=== PATIENT | male | born 1975 | race Caucasian/White ===

== ENCOUNTER → 2016-04-15 09:20 | Day surgery (SDC) | payer OTHER ==
--- NOTE | 2016-04-09 16:51 | HP ---
PREOPERATIVE HISTORY AND PHYSICAL: DATE OF SURGERY/ADMISSION: 04/15/16 [facility] DATE OF OFFICE VISIT/ENCOUNTER: 04/07/16 ATTENDING SURGEON: Dr. Paty Rudolph. PROCEDURE: Right wrist carpal tunnel release, ulnar nerve decompression at the elbow. CHIEF COMPLAINT: Numbness and tingling in the right hand. HISTORY OF PRESENT ILLNESS: This is a 41-year-old male who is complaining of numbness and tingling and pain in the right hand that had been ongoing for several years now. He had a nerve conduction study a few years ago that was consistent with ulnar neuropathy at the elbow and carpal tunnel syndrome at the wrist. Symptoms have become much more bothersome over the years to the point where he cannot ride his motor cycle. He feels weakness in his hands as well as pain and often times he is dropping things. He wakes up at night very frequently and has to shake his hands to try to get some of the feeling back. He complains of symptoms in his thumb, index, and middle fingers and occasionally his small finger has a lot of burning pain along with the ulnar aspect of his hand. He is interested in pursuing surgical intervention at this time to alleviate his symptoms. PAST MEDICAL HISTORY: 1. Anxiety. PAST SURGICAL HISTORY: 1. Right shoulder decompression. 2. Surgery for right hand wound infection. CURRENT MEDICATIONS: None. ALLERGIES: No known drug allergies. FAMILY MEDICAL HISTORY: Noncontributory. SOCIAL HISTORY: The patient is not currently employed. He is a smoker and smokes up to a pack per day. He has done so since age 13. He also admits to smoking marijuana on regular occasion. He admits to social alcohol drinking. REVIEW OF SYSTEMS: General: Positive for fatigue, negative for fevers, chills or night sweats. No known anesthesia problems in the past. HEENT: The patient reports history of syncopal episodes, approximately 2 years ago, etiology unclear. Negative for headache or lightheadedness. Integumentary: Negative for abrasions, lesions, or open wounds. Cardiothoracic: Negative for chest pain, palpitations or edema. Negative for hypertension. Pulmonary: Negative for shortness of breath with exertion, chronic cough, or COPD. GI: Negative for nausea, vomiting, diarrhea, constipation or GERD. : Negative for nocturia, urinary frequency, urgency, history of UTIs or kidney problems. Musculoskeletal: Positive for chronic back pain and current complaint. Neurological, negative for history of seizure, stroke, or epilepsy. Positive for peripheral neuropathy and anxiety. Endocrine: Negative for Diabetes or thyroid issues. Hematologic: Negative for easy bruising, anemia, excessive bleeding, or history of DVT. Infectious Disease: Negative for history of MRSA, hepatitis C, or HIV. PHYSICAL EXAMINATION VITAL SIGNS: Height 6 feet 1.5 inches, weight 292 pounds, pulse rate 100, blood pressure 158/89. GENERAL: Well-developed, well-nourished 41-year-old male, in no acute distress. HEENT: Normocephalic, atraumatic. Pupils are equal, round, and reactive to light and accommodation. Extraocular movements are intact. NECK: Supple. No palpable lymph nodes. Throat is clear. PULMONARY: Lungs are clear to auscultation bilaterally. No wheezes, rales, or rhonchi. CARDIOTHORACIC: Regular rate and rhythm. S1, S2. No murmurs, rubs or gallops. No edema. ABDOMEN: Positive bowel sounds, soft, and nontender. NEUROLOGICAL: Alert and oriented x3. Cranial nerves II through XII are intact. Sensation is intact to light touch. MUSCULOSKELETAL: On exam of the right upper extremity, he has a positive Tinel' s sign at the ulnar nerve, at the elbow and a positive Tinel's sign of the median nerve at the wrist. He has decreased sensation to light touch at the median nerve distribution, weakness with some abduction. He has full flexion and extension of his fingers and there is no significant thenar wasting but there is weakness with thumb abduction. EMG nerve conduction study of the right upper extremity shows evidence of right carpal tunnel syndrome and ulnar neuropathy at the elbow. IMPRESSION: Right carpal tunnel syndrome and ulnar neuropathy at the elbow. PLAN: The patient is scheduled to undergo a right wrist carpal tunnel release and an ulnar nerve decompression at the elbow with Dr. Rudolph on 04/15/16. He will return to the office 10 to 14 days postop for followup and suture removal. Pain medication will be e-scribed for the patient on the day of surgery. ROD ELENA [id number]/[facility] #: [id number] MTDD
[~2016-04-15 09:20] MED LIST: Buffered Lidocaine 1% SYR 3ML* 3 ML/SYR SYRINGE INTRADERM ONE; Buffered Lidocaine 1% SYR 3ML* 3 ML/SYR SYRINGE ONE; Bupivacaine 0.5% SDV PF* 30 ML VIAL ONE; HYDROcodone/ACETAMIN 5-325 MG* 1 TAB ONE; Ketorolac INJ* 30 MG/ML 1 ML VIAL ONE; Lidocaine 1% INJ* 10 MG/ML 30 ML SDV ONE; Lidocaine 2% PF * 5 ML VIAL ONE; Midazolam* 1 MG/ML 2 ML VIAL (2 MG) ONE; Propofol* 10 MG/ML 20 ML BTL IV PUSH ONE; Sodium Citrate/Citric Acid* 15 ML UDC ONE; Sodium Citrate/Citric Acid* 15 ML UDC PO ONE; ceFAZolin 2 GM PREMIX (*) 2 GM/50 ML BAG IVPB ONE; fentaNYL* 50 MCG/ML 2 ML VIAL (100 MCG VIAL) ONE
[2016-04-15 13:17] VITALS: BP 145/77
--- NOTE | 2016-04-15 23:53 | OP ---
DATE OF OPERATION: 04/15/16 - [facility] DATE OF : 77 SURGEON: Paty Rudolph MD GUEST SERVICE AIDE: ROD Simon ANESTHESIOLOGIST: Demian Maurer DO ANESTHESIA: General. PRE-OP DIAGNOSES: Right carpal tunnel syndrome and right ulnar nerve compression of the elbow. POST-OP DIAGNOSES: Right carpal tunnel syndrome and right ulnar nerve compression of the elbow. OPERATIVE PROCEDURE: Right carpal tunnel release and ulnar nerve decompression of the elbow. ESTIMATED BLOOD LOSS: Zero. TOURNIQUET TIME: About 30 minutes. INDICATION FOR PROCEDURE: Nav is a 41-year-old male who has numbness and tingling in his right hand. Nerve conduction is consistent with ulnar nerve compression of the elbow and median nerve compression of the wrist. DESCRIPTION OF PROCEDURE: The patient was brought to the operating room and was given a general anesthetic and placed in the supine position on the operating table with a tourniquet around his right upper arm and right upper extremity was prepped and draped in the usual sterile fashion. The upper extremity was exsanguinated and the tourniquet elevated to 250 mmHg. A longitudinal incision was made in the palm in line with the ring finger. We dissected through the subcutaneous tissue sharply down to the transverse carpal ligament. The ligament was incised longitudinally and then released more proximally with the scissors. The median nerve was dissected free from the surrounding tissue, and there was an area of moderate compression at the mid portion of the ligament. The wound was irrigated and the skin edge was reapproximated with 4-0 nylon suture. Next, a curvilinear incision was made centered between the medial epicondyle and the tip of the olecranon process. We dissected sharply through the subcutaneous tissue and then bluntly down to the median nerve just proximal to the elbow joint. The patient had an anconeus epitrochlearis muscle across his cubital tunnel. Presumably, this was the main side of compression. This was divided as was Alonzo ligament and then the nerve was dissected out proximally and distally from all of its constraints. The FCU fascia was divided superficially and this completely released the nerve. The medial intermuscular septum was incised as well. The wound was irrigated with saline. Subcutaneous tissue closed with 2-0 Polysorb and the skin with skin blanca. The wound was dressed with Xeroform, 4x4, Webril and an Donavon wrap. The patient tolerated the procedure and was brought to the recovery room in good condition. [id number]/[facility] #: [id number] JENNIFER
== END | disposition home or self-care (01) ==
LOC: OREAST 09:20
PROVIDERS: ATTEND Orthopaedic Surgery
DX: G56.01 Carpal tunnel syndrome, right upper limb (principal); G56.21 Lesion of ulnar nerve, right upper limb; F17.200 Nicotine dependence, unspecified, uncomplicated; I10 Essential (primary) hypertension; G47.33 Obstructive sleep apnea (adult) (pediatric); Z68.38 Body mass index [BMI] 38.0-38.9, adult
CPT/HCPCS: A9270-GY; J0690; J1885; J2250; J2704; J3010

== ENCOUNTER 2016-05-14 11:35 | Emergency (ER) | payer OTHER ==
[2016-05-14 11:39] VITALS: BP 145/89
== END 2016-05-14 14:47 | disposition left against medical advice (07) ==
LOC: ED 11:35
DX: Z91.81 History of falling (principal); Z53.21 Procedure and treatment not carried out due to patient leaving prior to being seen by health care provider

== ENCOUNTER 2016-10-16 06:09 | Observation (INO) | payer OTHER ==
[~2016-10-16 06:09] MED LIST changes: +Buffered Lidocaine 0.9% SYRIN* 5 ML/SYR SYRINGE INTRADERM ONE; -Buffered Lidocaine 1% SYR 3ML* 3 ML/SYR SYRINGE INTRADERM ONE; -Buffered Lidocaine 1% SYR 3ML* 3 ML/SYR SYRINGE ONE; -Bupivacaine 0.5% SDV PF* 30 ML VIAL ONE; +Famotidine IV* 10 MG/ML 2 ML (20 mg) IV ONE; -HYDROcodone/ACETAMIN 5-325 MG* 1 TAB ONE; -Ketorolac INJ* 30 MG/ML 1 ML VIAL ONE; -Lidocaine 1% INJ* 10 MG/ML 30 ML SDV ONE; -Lidocaine 2% PF * 5 ML VIAL ONE; +Metoclopramide TAB* 10 MG PO ONE; -Midazolam* 1 MG/ML 2 ML VIAL (2 MG) ONE; -Propofol* 10 MG/ML 20 ML BTL IV PUSH ONE; -Sodium Citrate/Citric Acid* 15 ML UDC ONE; -Sodium Citrate/Citric Acid* 15 ML UDC PO ONE; -ceFAZolin 2 GM PREMIX (*) 2 GM/50 ML BAG IVPB ONE; -fentaNYL* 50 MCG/ML 2 ML VIAL (100 MCG VIAL) ONE
[2016-10-16] MEDS ORDERED: Buffered Lidocaine 0.9% SYRIN* 5 ML/SYR SYRINGE ONE (06:32)
[2016-10-16] MEDS ORDERED: Famotidine IV* 10 MG/ML 2 ML (20 mg) ONE (06:32)
[2016-10-16] MEDS ORDERED: Metoclopramide TAB* 10 MG ONE (06:32)
[2016-10-16] MEDS ORDERED: ceFAZolin 2 GM PREMIX (*) 50 ML BAG (BBraun bag) IVPB ONE (06:33)
[2016-10-16] MEDS ORDERED: Artificial Tear OPHTH.OINT* 3.5 GM ONE (07:11)
[2016-10-16] MEDS ORDERED: Lidocaine 1.5% EPI 1:200,000* 30 ML SDV ONE (07:18)
[2016-10-16] MEDS ORDERED: Thrombin 5,000 UNITS* 1 APPLIC KIT - topical use - TOPICAL ONE (07:18)
[2016-10-16] MEDS ORDERED: Bacitracin IV* 50,000 UNITS INJ ONE (07:18)
[2016-10-16] MEDS ORDERED: fentaNYL* 50 MCG/ML 5 ML VIAL (250 MCG VIAL) ONE (07:19)
[2016-10-16] MEDS ORDERED: Lidocaine 2% PF * 5 ML VIAL ONE (07:19)
[2016-10-16] MEDS ORDERED: Cisatracurium* 2 MG/ML MDV 5 ML ONE (07:19)
[2016-10-16] MEDS ORDERED: Ondansetron INJ* 2 MG/ML VIAL ONE (07:19)
[2016-10-16] MEDS ORDERED: Propofol* 10 MG/ML 20 ML BTL IV PUSH ONE ×2 (07:19→08:04)
[2016-10-16] MEDS ORDERED: Dexamethasone IV* 4 MG/ML 1 ML (4 MG) ONE (07:19)
[2016-10-16] MEDS ORDERED: KETAMINE HCL* 50 MG/ML 10 ML VIAL ONE (07:20)
[2016-10-16] MEDS ORDERED: Midazolam* 1 MG/ML 5 ML VIAL (5 MG) ONE (07:20)
[2016-10-16] MEDS ORDERED: Ondansetron INJ* 2 MG/ML VIAL IV PRN ×2 (09:29→09:46)
[2016-10-16] MEDS ORDERED: HYDROmorphone* 1 MG/ML 1 ML SYR ONE ×4 (09:43→11:36)
[2016-10-16] MEDS ORDERED: Acetaminophen TAB* 325 MG PO PRN (09:46)
[2016-10-16] MEDS ORDERED: Nicotine Inhaler* 10 MG AMP INH PRN (09:49)
[2016-10-16] MEDS ORDERED: Mouth Piece, Nicotine* 1 EACH CARTRIDGE INH PRN (09:49)
[2016-10-16] MEDS ORDERED: Benzocaine/Menthol LOZ* 1 LOZENGE PO PRN (09:50)
[2016-10-16] MEDS ORDERED: Nicotine PATCH 21 MG/24 HR* PATCH TRANSDERM SCH (10:00)
[2016-10-16] MEDS ORDERED: fentaNYL* 50 MCG/ML 2 ML VIAL (100 MCG VIAL) ONE ×3 (10:03→10:46)
[2016-10-16] MEDS: fentaNYL* 50 MCG/ML 2 ML VIAL (100 MCG VIAL) IV PRN ×5 (10:04→10:47)
[2016-10-16] MEDS: HYDROmorphone* 1 MG/ML 1 ML SYR IV PRN ×2 (10:06→10:20)
--- NOTE | 2016-10-16 10:16 | RAD ---
HISTORY: Anterior cervical fusion COMPARISONS: CT dated May 29, 2016 VIEWS: 3, portable intraoperative views of the cervical spine for localization during spinal surgery FINDINGS: The first image performed at 7:05 AM demonstrates a needle opposite of C6. The second image performed at 8:30 AM demonstrates a needle within the C5-C6 intervertebral disc space. The subsequent image at 8:40 AM demonstrates an anterior cervical fusion plate and screws at C5 and C6 with intervertebral graft material at C5-C6. IMPRESSION: LIMITED PORTABLE VIEWS OF THE CERVICAL SPINE FOR LOCALIZATION DURING SPINAL SURGERY
[2016-10-16] MEDS ORDERED: oxyCODONE/Acetamin 5/325 MG* TAB ONE ×2 (10:33→10:46)
[2016-10-16] MEDS: oxyCODONE/Acetamin 5/325 MG* TAB PO PRN ×2 (10:34→10:47)
[2016-10-16] MEDS: Morphine INJ* 4 MG/ML 1 ML SYRINGE IV PRN ×2 (13:15→17:16)
[2016-10-16] MEDS: HYDROcodone/ACETAMIN 5-325 MG* 1 TAB PO PRN ×2 (15:31→20:11)
[2016-10-16] MEDS ORDERED: Nicotine Patch Removal NOTE PATCH OFF SCH (21:00)
[2016-10-17] MEDS: HYDROcodone/ACETAMIN 5-325 MG* 1 TAB PO PRN ×2 (00:13→04:42)
--- NOTE | 2016-10-17 07:41 | PN ---
Progress Note - Progress Note Date of Service: 10/17/16 SOAP: Subjective: []POD#1 Doing well C/O incisional pain Drain fell out Objective: []Neuro intact Neck soft Assessment: []Satis post op course Plan: []D/C today D/C instructions given
[2016-10-17] MEDS ORDERED: HYDROcodone/ACETAMIN 5-325 MG* 1 TAB PO PRN (08:25)
[2016-10-17] MEDS ORDERED: HYDROcodone/ACETAMIN 5-325 MG* 1 TAB ONE (08:29)
[2016-10-17 09:37] VITALS: BP 120/92
--- NOTE | 2016-10-18 02:43 | DS ---
DISCHARGE SUMMARY: DATE OF ADMISSION: 10/16/16 DATE OF DISCHARGE: 10/17/16 ATTENDING PHYSICIAN: Dr. Donovan * (DICTATED BY ROD CHRISTENSEN) DISCHARGE DIAGNOSIS: Cervical disk disease C5-6. SPECIAL PROCEDURE: Anterior cervical diskectomy and fusion C5-6 with anterior instrumentation. HOSPITAL COURSE: This 41-year-old male was seen in the office with cervical radiculopathy, consistent with a herniated disk at C5-6 to the right as evidenced from cervical spine MRI. He failed to improve with conservative treatments and admitted at this time for elective surgical treatment. On the day of admission, he was taken to surgery where under general anesthesia, an anterior cervical diskectomy and fusion at C5-6 operation was carried out. Postoperatively, he is feeling well; however, pain was difficult to control with oral pain medications and he therefore, required IV pain medications for optimal management. Overnight, the MONTY wound drain fell out on its own and therefore, remained out. He was eating soft food without difficulty. He is ambulating independently. On the first postoperative day, he was discharged home to the care of his family. DISCHARGE INSTRUCTIONS: Activity level and wound care were discussed with the patient and information was provided. Followup: He will be seen in approximately 2 weeks in office for followup. DISCHARGE MEDICATIONS: [place] 5/325 mg 2 tabs by mouth every 4 hours as needed for pain. ROD CHRISTENSEN [id number]/[facility] #: [id number] [facility]
--- NOTE | 2016-10-19 02:29 | OP ---
OPERATIVE REPORT: DATE OF OPERATION: 10/16/16 DATE OF : 77 PRIMARY SURGEON: Valente Donovan MD. PATIENT INTAKE REPRESENTATIVE: ROD Self ANESTHESIA: General. PREOP DIAGNOSIS: Herniated nucleus pulposus, C5-6. POST-OP DIAGNOSIS: Herniated nucleus pulposus, C5-6. OPERATIVE PROCEDURE: Anterior cervical diskectomy and fusion C5-6 with placement of biomechanical f usion device and anterior instrumentation. DESCRIPTION OF PROCEDURE: After satisfactory general anesthesia was obtained, the patient was place d on the operating table in the supine position with the head supported on the horseshoe headrest an d the neck slightly extended. A emblem maker x-ray was taken and a skin incision was outlined at the midli ne extending to the right side. This was 3 cm localized though at the C5-6 level. This incision wa s infiltrated with 1% Xylocaine with epinephrine after which it was turned down sharply to the level of the subcutaneous tissues. A superiorly and inferiorly based subcutaneous flap was then fashione d and the platysma muscle divided along the direction of its fibers. Utilizing a combination of sha rp and blunt dissection, the dissection plane was developed between the sternocleidomastoid and stra p muscles and carried down to the anterior aspect of the span. An additional x- ray was taken verif enrico localization of the C5-6 level, after which the attachment of longus colli muscle was down and self-retaining retractors placed to facilitate exposure. The anterior two-thirds and disk material was removed with the combination of Midas Mikey drill, angled curettes, and pituitary rongeurs. Caspa r distractor pins were then placed in the C5 and C6 vertebral bodies and gentle disk space distracti on applied. At this point of the procedure, the operating microscope was brought into the field, an d the remainder of the procedure was done under microscopic visualization. Utilizing the drill, cur ettes, and Kerrison's, the remainder of the disk was removed and there was noted to be disk material extending out into the right neuroforamen. This was removed in several fragments. The decompressio n was carried back until normal dura was encountered. At the conclusion of the decompression, the n erve hook readily with both C6 nerve roots. Following the decompression, an 8 mm PEEK graft was selected and filled with bony matrix after which it was slightly countersunk. A Medtronic ZEVO plate was then selected and secured into position with 13-mm self-drilling screws into the C5 and C6 vertebral bodies. A post-construct x-ray was done showing good graft and placement. The wound was then thoroughly irrigated, after which a drain was placed in the prevertebral space and tunneled ou t toward the right side. The subcutaneous tissues were then reapproximated with 3-0 Vicryl and the skin closed with Steri-Strips. The estimated blood loss was less than 50 cc and the final sponge, p adding, and needle counts were correct. The patient was taken to the recovery room, extubated, and in stable condition. [id number]/[facility] #: [id number]
== END 2016-10-17 09:37 | disposition home or self-care (01) ==
LOC: OR 06:09 → SSU 12:17
PROVIDERS: ADMIT Neurological Surgery; ATTEND Neurological Surgery
DX: M50.122 Cervical disc disorder at C5-C6 level with radiculopathy (principal); F17.210 Nicotine dependence, cigarettes, uncomplicated
CPT/HCPCS: 72020; 96374; 96375; A9270-GY; C1713; C1776; C9359; G0378; J0690; J1100; J1170; J2250; J2270; J2405; J2704; J3010

== ENCOUNTER 2018-03-11 17:14 | Emergency (ER) | payer OTHER ==
--- OUTSIDE RECORDS SUMMARY | 2018-03-11 17:35 | XMS REPORT | Continuity of Care Document ---
:1975 External Reference #:[id number] Author Name Wayne Carcamo MD Address [address] [place] [address] Care Team Providers Name Role Phone Patito Russell, Branden Care Team Information Mig Tig Welder Unavailable Patito Russell, Branden Primary Care Physician Unavailable Payers Type Date Identification Numbers Payment Provider Subscriber Policy Number: [id number] [facility] Nav Sarabia PayID: [id number] [address] [address] [place] [address] Advance Directives Description No Information Available Problems Date Description Provider Status Onset: 12/08/2012 Essential hypertension Olena Delgado NP Active Onset: 01/21/2018 Otorrhea Wayne Carcamo MD Active Onset: 01/21/2018 Diffuse otitis externa Wayne Carcamo MD Active Family History Date Family Member(s) Problem(s) Comments General Hearing Loss General Migraine Social History Type Date Description Comments Sex Unknown Occupation Unemployed Tobacco Use Start: Unknown Current Cigarette Smoker 1/2 Pack x 20 yrs Daily Tobacco Use Start: Unknown Never Smoked Cigars Tobacco Use Start: Unknown Never Smoked A Pipe Smokeless Tobacco Never Used Smokeless Tobacco ETOH Use PT Does Not Currently Drink Alcohol Recreational Drug Use Current Marijuana smoker Tobacco Use Start: Unknown Patient is a current smoker, smokes every day Allergies, Adverse Reactions, Alerts Description No Known Drug Allergies Medications Medication Date Status Form Strength Qnty SIG Indications Ordering Provider No Active 02/19/ Active Unknown Medications 2018 Ciprodex 12/08/ Hx Suspension 0.3-0.1% 2units 4 drops 380.10 [place] 2013 - infected Annette 01/20/ satnam cruz M.D. 2018 apply rebate rxbin: [id number] rxpcn: loyalty rxgrp: [id number] tie worker: ([id number]) id: [id number] Zolpidem /00/ Hx Unknown Tartrate 2012 Pravastatin /00/ Hx Unknown 2012 Oxycodone /00/ Hx Unknown 2012 Naproxen /00/ Hx Unknown 2012 Nicotine /00/ Hx Unknown Relief 2012 Nicrorelief // Hx Unknown 2012 Percocet / Hx Tablets 10-325mg Unknown - 2017 Ambien / Hx Tablets 10mg 1 po q hs Unknown - 2017 Pravachol / Hx Tablets 20mg Unknown 2017 Zanaflex / Hx Capsules 4mg 1/2 tab po Unknown 0000 - q 4-6 prn 2017 Oxycodone HCL / Hx Tablets 10mg Take One Unknown 0000 - Tablet By Four 2018 Times A Day as Needed Maximum Daily Dose 4 Immunizations Description No Information Available Vital Signs Date Vital Result Comment 02/19/2018 10:22am Weight 306.00 lb Weight 138.802 kg Height 73 inches 6'1" Height in cm's 185.4 cm BMI (Body Mass Index) 40.4 kg/m2 01/21/2018 11:17am Weight 306.00 lb Weight 138.802 kg Height 73 inches 6'1" Height in cm's 185.4 cm BMI (Body Mass Index) 40.4 kg/m2 12/08/2012 3:33pm BP Systolic 136 mmHg BP Diastolic 82 mmHg Heart Rate 64 /min Respiratory Rate 16 /min Weight 280.00 lb Weight 127.000 kg Height 72 inches 6'0" Height in cm's 182.9 cm BMI (Body Mass Index) 38.0 kg/m2 Results Description No Information Available Procedures Date Code Description Status 12/08/2012 05374 Binocular Microscopy Completed Encounters Type Date Location Provider Dx Diagnosis Office Visit 02/19/2018 [place],Pradeep Carcamo, H60.311 Diffuse otitis 10:15a 03/09/07 MD externa, right ear Office Visit 01/21/2018 [place],After Wayne Carcamo H60.311 Diffuse otitis 11:15a 03/09/07 MD externa, right ear H92.11 Otorrhea, right ear Office Visit 12/08/2012 3:30p [place],After 03/09/07 Danny, 380.10 Otitis Externa [place] [employer] Acute 401.9 High Blood Pressure Or Hypertension/Unspecified Plan of Treatment 02/19/2018 - Wayne Carcamo MDH60.311 Diffuse otitis externa, right earComments :Otitis externa significant improvement, hydrocortisone ointment to the external ear for itchiness
[2018-03-11] MEDS ORDERED: predniSONE TAB* 20 MG PO ONE (21:07)
--- NOTE | 2018-03-11 21:07 | ED ---
Shortness of Breath - HPI Summary HPI Summary: This patient is a 43 year old M presenting to [facility] accompanied by his with a chief complaint of worsening SOB since 03/08/18. The patient rates the pain 8/10 in severity. Patient reports wheezing, body aches/myalgia, lightheadedness, cough with yellow sputum, and CP due to persistent cough. Patient denies fever, decreased appetite, abdominal pain, nausea, vomiting, or pain or edema in the LEs. The patient reports that he smoked marijuana last night to try to fall asleep. The patients mother was recently diagnosed with PNA. PMHX acute bronchitis. SHX marijuana use, occasional smoker. - History of Current Complaint Chief Complaint: EDUpperRespComplaint Time Seen by Provider: 03/11/18 20:55 Hx Obtained From: Patient Onset/Duration: Gradual Onset, Lasting Days Timing: Constant Dyspnea At: Rest Associated Signs & Symptoms: Cough (Productive), Wheezing, Chest Pain w/Cough - Allergy/Home Medications Allergies/Adverse Reactions: Allergies Allergy/AdvReac Type Severity Reaction Status Date / Time No Known Allergies Allergy Verified 10/16/16 06:43 PMH/Surg Hx/FS Hx/Imm Hx Endocrine/Hematology History: Denies: Hx Diabetes Cardiovascular History: Reports: Hx Angina - STATES RELATED TO ANXIETY, Other Cardiovascular Problems/Disorders - LEFT VENTRICLE WALL THICKENED-SEEN DR. DR. BARKER FOR 2012 Denies: Hx Hypertension, Hx Pacemaker/ICD Respiratory History: Reports: Hx Sleep Apnea, Other Respiratory Problems/ Disorders - acute bronchitis GI History: Reports: Hx Gastroesophageal Reflux Disease - DENIES History: Denies: Hx Renal Disease Musculoskeletal History: Reports: Hx Arthritis, Hx Back Problems - chronic pain neck and spine, Hx Bursitis - neck, Hx Tendonitis, Other Musculoskeletal History Sensory History: Reports: Hx Contacts or Glasses - READING Denies: Hx Hearing Aid Opthamlomology History: Reports: Hx Contacts or Glasses - READING Neurological History: Reports: Hx Migraine - NONE IN A LONG TIME, Hx Spinal Cord Injury, Other Neuro Impairments/Disorders - injured neck due to a fall ( loss of consciousness due to choking) august 2011 Psychiatric History: Reports: Hx Anxiety - PRN XANAX, Hx Panic Disorder - Surgical History Surgery Procedure, Year, and Place: 2009 OPEN DECOMPRESSION RIGHT SHOULDER, EXCISION OF DISTAL CLAVICLE, [facility]. 2005 LEFT HAND SURGERY, [facility]. 2014 LAPAROSCOPIC CHOLECYSTECTOMY, EXCISION OF ABDOMINAL WALL LIPOMA, [facility]. 2017 NECK FUSION SURGERY [facility] Hx Anesthesia Reactions: No Infectious Disease History: No Infectious Disease History: Denies: Hx of Known/Suspected MRSA - h/o staph, Traveled Outside the [place] in Last 30 Days - Family History Known Family History: Positive: Diabetes, Other - cancer - Social History Alcohol Use: Rare Substance Use Type: Reports: Marijuana Substance Use Comment - Amount & Last Used: NONE FOR A WHILE Hx Tobacco Use: Yes Smoking Status (MU): Current Some Day Smoker Type: Cigarettes Amount Used/How Often: OCCASIONALLY X 25 YEARS OFF AND ON Have You Smoked in the Last Year: Yes Review of Systems Negative: Fever Positive: Chest Pain - related to cough Positive: Shortness Of Breath, Cough - productive Negative: Abdominal Pain, Vomiting, Nausea Positive: Myalgia - diffuse. Negative: Edema - LE Neurological: Other - lightheadedness All Other Systems Reviewed And Are Negative: Yes Physical Exam - Summary Physical Exam Summary: Appearance: Well-appearing, Well-nourished, lying in bed comfortably Skin: Warm, dry, no obvious rash Eyes: sclera anicteric, no conjunctival pallor ENT: mucous membranes moist, pharynx appears normal Neck: Supple, nontender Respiratory: Clear to auscultation, no signs of respiratory distress Cardiovascular: Normal S1, S2. No murmurs. Normal distal pulses in tibial and radial bilaterally. Abdomen: Soft, nontender, normal active bowel sounds present Musculoskeletal: Normal, Strength/ROM Intact Neurological: A&Ox3, awake and alert, mentation is normal, speech is fluent and appropriate Psychiatric: affect is normal, does not appear anxious or depressed Triage Information Reviewed: Yes Vital Signs On Initial Exam: Initial Vitals Temp Pulse Resp BP Pulse Ox 98.3 F 83 18 128/87 96 03/11/18 17:17 03/11/18 17:17 03/11/18 17:17 03/11/18 17:17 03/11/18 17:17 Vital Signs Reviewed: Yes Diagnostics - Vital Signs Vital Signs Temp Pulse Resp BP Pulse Ox 03/11/18 18:45 98.5 F 92 24 147/75 100 03/11/18 17:17 98.3 F 83 18 128/87 96 - Laboratory Lab Results: Lab Results 03/11/18 Range/Units 17:37 Influenza A (Rapid) Negative (Negative) Influenza B (Rapid) Negative (Negative) Lab Statement: Any lab studies that have been ordered have been reviewed, and results considered in the medical decision making process. - Radiology CXR Radiology Interpretation Completed By: ED Physician Summary of Radiographic Findings: No acute disease, pending officia report. Course/Dx - Course Course Of Treatment: This patient is a 43 year old M presenting to [facility] accompanied by his with a chief complaint of worsening SOB since 03/08/18. The patient rates the pain 8/10 in severity. Patient reports wheezing, body aches/myalgia, lightheadedness, cough with yellow sputum, and CP due to persistent cough. Patient denies fever, decreased appetite, abdominal pain, nausea, vomiting, or pain or edema in the LEs. CXR reveals, per radiologist, no acute disease. Pending official radiology report. In the ED course the patient was given Albuterol, Hydrocodone, and Prednisone. Patient will be discharged with prescription for Albuterol, Hydrocodone, and Prednisone and follow up from Dr. Rowell. The patient is agreeable with this plan. - Diagnoses Provider Diagnoses: Acute bronchitis Discharge - Sign-Out/Discharge Documenting (check all that apply): Patient Departure - discharge - Discharge Plan Condition: Stable Disposition: HOME Prescriptions: Albuterol HFA INHALER* [Ventolin HFA Inhaler*] 2 puff INH Q4H PRN #1 mdi PRN Reason: Shortness Of Breath Hydrocodone/Chlorphen P-Stirex [Tussionex Pennkinetic Susp] 5 ml PO BID PRN #60 emerita.[email or web address] MDD 10 ml PRN Reason: Cough predniSONE [Prednisone 20 MG TAB] 40 mg PO DAILY 5 Days #10 tablet Patient Education Materials: Acute Bronchitis (ED) Referrals: Edgardo Rowell MD [Primary Care Provider] - 4 Days (if not improving) - Billing Disposition and Condition Condition: STABLE Disposition: Home - Attestation Statements Document Initiated by Scribe: Yes Documenting Scribe: Bill De La Fuente Provider For Whom Juan Davidibe is Documenting (Include Credential): Liu Watts MD Scribe Attestation: Bill Rodriguez, chered for Liu Watts MD on 03/12/18 at 1829. Scribe Documentation Reviewed: Yes Provider Attestation: The documentation as recorded by the scribe, Bill De La Fuente accurately reflects the service I personally performed and the decisions made by me, Liu Watts MD Status of Kelsey Document: Viewed
[2018-03-11] MEDS ORDERED: A lbuterol Hfa (PREPAK) 1 MDI - ED TAKE HOME DISPENSING ONLY INHH ONE (21:08)
[2018-03-11] MEDS ORDERED: HYDROcodone/ACETAMIN 5-325 MG* 1 TAB PO ONE (21:08)
[2018-03-11 22:09] VITALS: BP 138/72
== END 2018-03-11 21:45 | disposition home or self-care (01) ==
LOC: ED 17:14
DX: J20.9 Acute bronchitis, unspecified (principal); F41.9 Anxiety disorder, unspecified; Z72.0 Tobacco use
CPT/HCPCS: 71046; 99282; A9270-GY; J7512